=== PATIENT | female | born 1975 | race Two or more races ===

== ENCOUNTER 2022-05-12 22:37 | Inpatient (IN) | payer OTHER ==
[~2022-05-12] VITALS: Ht 162.6 cm; Wt 51.3 kg
[2022-05-12] MEDS ORDERED: VISTARIL25 MG PO (23:23)
[2022-05-12] MEDS ORDERED: ULTRAM50 MG (23:23)
[2022-05-12] MEDS ORDERED: BENADRYL25 MG (23:23)
[2022-05-13] MEDS ORDERED: PRILOSEC OTC20 MG PO (04:06)
[2022-05-17] MEDS ORDERED: CLONAZEPAM0.25 MG (23:42)
[2022-05-17] MEDS ORDERED: NEURONTIN300 MG (23:42)
== END 2022-05-17 22:07 | disposition left against medical advice (07) | DRG 392 ==
LOC: ER 22:37 → SEC-K 05-13 11:29 → MEDJ 05-13 16:15 → SEC-K 05-13 16:48 → MEDJ 05-16 18:38
PROVIDERS: ADMIT Internal Medicine; ATTEND Internal Medicine
PROC: BW21YZZ Computerized Tomography (CT Scan) of Abdomen and Pelvis using Other Contrast (ICD-10-PCS; principal; 2022-05-17)
DX: K52.89 Other specified noninfective gastroenteritis and colitis (principal); E86.0 Dehydration; K59.09 Other constipation; Z20.822 Contact with and (suspected) exposure to COVID-19; F32.9 Major depressive disorder, single episode, unspecified

== ENCOUNTER → 2022-05-17 | Emergency (ER) | payer OTHER ==
[~2022-05-17] VITALS: Ht 154.9 cm; Wt 49.9 kg
[~2022-05-17] MED LIST: BENADRYL25 MG; CLONAZEPAM0.25 MG; NEURONTIN300 MG; PRILOSEC OTC20 MG PO; ULTRAM50 MG; VISTARIL25 MG PO
== END | disposition left against medical advice (07) ==
LOC: ER 22:46
DX: Z53.21 Procedure and treatment not carried out due to patient leaving prior to being seen by health care provider (principal)